=== PATIENT | female | born 1970 | race Caucasian/White ===

== ENCOUNTER → 2018-04-22 13:34 | Outpatient (CLI) | payer MEDICARE, MEDICAID | END | disposition home or self-care (01) | LOC: D.US 04-10 09:00 | DX: R10.11 Right upper quadrant pain (principal) ==

== ENCOUNTER 2018-06-06 06:45 | Day surgery (SDC) | payer MEDICARE ==
[~2018-06-06] VITALS: Ht 163.8 cm; Wt 99.3 kg
--- NOTE | ~2018-06-06 | OP ---
PATIENT NAME: GERARDO JENSEN MEDICAL RECORD: [id number] :74 LOCATION:D.OPS ADMISSION DATE: SURGEON: VIPUL WOLFE MD DATE OF OPERATION: 06/06/2018 PREOPERATIVE DIAGNOSES: 1. Gallstones. 2. Hypertension. 3. Chronic pain syndrome. 4. Atypical psychosis. 5. Hyperlipidemia. 6. The patient has tobacco dependence syndrome. POSTOPERATIVE DIAGNOSES: 1. Gallstones. 2. Hypertension. 3. Chronic pain syndrome. 4. Atypical psychosis. 5. Hyperlipidemia. PROCEDURE: Laparoscopic cholecystectomy. SURGEON: Vipul Wolfe MD LOOM DOFFER: Meghann Vasquez APRN REPORT OF PROCEDURE: The patient's abdomen was prepped and draped in sterile fashion. A cutdown was made on the superior aspect of the umbilicus, 0 Vicryls were placed in the fascia bilaterally and the fascia was incised with 15-blade. I then bluntly entered the peritoneal cavity and placed a 12-mm Veronica port. Under direct visualization, a 5 mm trocar was placed in the epigastrium and 2 more 5-mm trocars were placed in the right subcostal region. The gallbladder was grasped and elevated. He had some chronic inflammatory changes. The cystic artery and cystic duct were dissected free and these were clipped proximally and distally and ligated in standard fashion. The gallbladder was taken off the liver bed using electrocautery and placed into the right upper quadrant. Any bleeding from the liver bed was then treated with electrocautery. At this point, the ports and insufflation were then removed and the gallbladder was taken out through the umbilicus. The umbilical fascia was closed with interrupted 0 Vicryls times 3. The wounds were irrigated out with normal saline and infused with 10 mL of 0.25% Marcaine with epinephrine. The skin incisions were all closed with subcutaneous 5-0 Monocryl and dressed appropriately. COMPLICATIONS: None. CONDITION: Stable. ANESTHESIA: General endotracheal and local. BLOOD LOSS: Minimal. TRANSINT:[id number] Voice Confirmation ID: [id number] DOCUMENT ID: [id number] OPERATIVE REPORT [id number] GERARDO JENSEN VIPUL WOLFE MD CC: BRIDGET LAKHANI MD [id number] DICTATION DATE: 06/06/18 1040 [facility] PUNCH OPERATOR: 06/06/18 1059 [facility] [address] [place] [address]
[~2018-06-06 06:45] MED LIST: ADDERALL 20 MG20 M1 PO; FUROSEMIDE20 MG PO; GLUCOPHAGE500 MG PO; INDERAL 40 MG T40 MG PO; LYRICA75 MG PO; PHENERGAN25 M1 PO; PRAVASTATIN SOD10 MG PO; PROZAC40 MG PO; SOMA350 MG PO; ULTRAM50 MG PO; VALIUM5 MG PO
[2018-06-06 07:03] LABS: BASOPHILS 0.6 % (0-2); EOSINOPHILS 2.8 % (0-7); HEMATOCRIT 41.7 % (36.0-48.0); HEMOGLOBIN 14.9 g/dL (12-16); IMMATURE GRANULOCYTES 0.2 % (0-5); LYMPHOCYTES 41.1 % (15-50); MCH 31.1 pg (26.0-34.0); MCHC 35.7 g/dL (31.0-37.0); MCV 87.1 fL (80.0-100.0); MEAN PLATELET VOLUME 10.1 fL (7.4-10.4); MONOCYTES 5.2 % (2-11); NEUTROPHILS 50.1 % (40-80); PLATELET COUNT 309 10x3/uL (130-400); RBC 4.79 10x6/uL (4.00-5.40); RDW 12.2 % (11.5-14.5)
[2018-06-06 07:20] LABS: CALC OSMOLALITY 281 mosm/kg (275-300); CARBON DIOXIDE 27.1 mmol/L (21.0-32.0); CHLORIDE - SERUM 103 mmol/L (98-107); CREATININE - SERUM 0.8 mg/dL (0.6-1.3); GLUCOSE 138 mg/dL (74-106); POTASSIUM - SERUM 3.5 mmol/L (3.5-5.1); SODIUM 141 mmol/L (136-145); UREA NITROGEN 9 mg/dL (7-18); eGFR NON AFRICAN AMERICAN 82 mL/min (90-120)
[2018-06-06 08:44] LABS: HCG URINE NEGATIVE (NEGATIVE)
[2018-06-06 09:04] VITALS: BP 122/81; Ht 163.8 cm; Wt 99.3 kg
[2018-06-06] MEDS ORDERED: HYDROCODON-ACE1 EA10 PO (10:36)
--- NOTE | 2018-06-06 11:32 | NUR ---
SCOPE PATCH BEHIND LEFT EAR ON ADMIT
--- NOTE | 2018-06-06 12:40 | NUR ---
PATIENT AMBULATES TO BATHROOM AND VOIDS MODERATE AMOUNT YELLOW URINE IN TOILET. AMBULATES WITHOUT UNSTEADINESS. STATES NAUSEA IS BETTER, TOLERATING ABOUT 8 OZ LEMON-SIOUX SODA. LEFT FOREARM PIV DC'D WITH TIP INTACT. 1250 PATIENT DRESSING IN PERSONAL CLOTHING INDEPENDENTLY
--- NOTE | 2018-06-06 13:05 | NUR ---
DISCHARGED HOME VIA WHEELCHAIR TO PRIVATE VEHICLE WITH FAMILY MEMBER
== END 2018-06-06 13:05 | disposition home or self-care (01) ==
LOC: D.OPS 06:45 → D.PAN 09:15 → D.OPS 09:15
PROVIDERS: ATTEND Surgery
DX: K80.10 Calculus of gallbladder with chronic cholecystitis without obstruction (principal); I10 Essential (primary) hypertension; G89.4 Chronic pain syndrome; F28 Other psychotic disorder not due to a substance or known physiological condition; E78.5 Hyperlipidemia, unspecified; F17.200 Nicotine dependence, unspecified, uncomplicated; Z01.812 Encounter for preprocedural laboratory examination

== ENCOUNTER 2019-12-03 12:21 | Emergency (ER) | payer MEDICARE ==
[~2019-12-03] VITALS: Ht 163.8 cm; Wt 79.5 kg
[~2019-12-03 12:21] MED LIST changes: +HYDROCODON-ACE1 EA10 PO
[2019-12-03 12:33] VITALS: Ht 163.8 cm; Wt 79.5 kg
[2019-12-03 13:02] LABS: HCG URINE NEGATIVE (NEGATIVE)
[2019-12-03 13:05] LABS: UDS - AMPHET NEGATIVE QUAL (NEGATIVE); UDS - BARB NEGATIVE QUAL (NEGATIVE); UDS - BENZO POSITIVE QUAL (NEGATIVE); UDS - COCAINE NEGATIVE QUAL (NEGATIVE); UDS - OPIATE NEGATIVE QUAL (NEGATIVE); UDS - PCP NEGATIVE QUAL (NEGATIVE); UDS - THC NEGATIVE QUAL (NEGATIVE)
[2019-12-03 13:13] LABS: NITRITE NEGATIVE (NEGATIVE)
[2019-12-03 13:14] LABS: BILIRUBIN NEGATIVE (NEGATIVE); KETONE LARGE mg/dL (NEGATIVE); UROBILINOGEN NORMAL mg/dL (< 2)
[2019-12-03 13:15] LABS: BACTERIA FEW HPF (NONE SEEN); WHITE CELLS - URINE 0-5 HPF (0-4)
[2019-12-03 13:58] LABS: BASOPHILS 0.4 % (0-2); EOSINOPHILS 1.1 % (0-7); HEMATOCRIT 41.6 % (36.0-48.0); HEMOGLOBIN 14.8 g/dL (12-16); IMMATURE GRANULOCYTES 0.1 % (0-5); LYMPHOCYTES 31.2 % (15-50); MCHC 35.6 g/dL (31.0-37.0); MEAN PLATELET VOLUME 10.2 fL (7.4-10.4); MONOCYTES 6.3 % (2-11); NEUTROPHILS 60.9 % (40-80); RBC 4.78 10x6/uL (4.00-5.40); RDW 12.5 % (11.5-14.5); WBC 8.2 10x3/uL (4.8-10.8)
[2019-12-03 14:01] LABS: PLATELET COUNT 244 10x3/uL (130-400)
[2019-12-03 14:09] LABS: CALC OSMOLALITY 275 mosm/kg (275-300); CALCIUM 9.6 mg/dL (8.5-10.1); CARBON DIOXIDE 24.7 mmol/L (21.0-32.0); CHLORIDE - SERUM 102 mmol/L (98-107); CREATININE - SERUM 0.7 mg/dL (0.6-1.3); GLUCOSE 100 mg/dL (74-106); POTASSIUM - SERUM 3.6 mmol/L (3.5-5.1); SODIUM 138 mmol/L (136-145); UREA NITROGEN 12 mg/dL (7-18); eGFR NON AFRICAN AMERICAN > 90 mL/min (90-120)
[2019-12-03 14:16] LABS: ALBUMIN 4.5 g/dL (3.4-5.0); ALKALINE PHOSPHATASE 83 U/L (30-120); ALT (SGPT) 74 U/L (10-68); BILIRUBIN - TOTAL 0.71 mg/dL (0.2-1.3); MAGNESIUM - SERUM 1.8 mg/dL (1.8-2.4); PROTEIN - SERUM 8.3 g/dL (6.4-8.2)
--- NOTE | 2019-12-03 15:41 | NUR ---
DR LINO NOTIFIED AND REVIEWED PT'S BEHAVIOR AND ASSESSMENT. PT IS HIGH RISK. SITTER ORDERED AND AT BEDSIDE. SAFETY PLAN INITIATED. RESOURCES GIVEN AND SHE VERBALIZES UNDERSTANDING.
[2019-12-04 22:45] VITALS: BP 132/84
== END 2019-12-05 03:32 ==
LOC: D.ER 12:21
PROVIDERS: Family Medicine
DX: R45.851 Suicidal ideations (principal); F32.9 Major depressive disorder, single episode, unspecified; E11.9 Type 2 diabetes mellitus without complications